=== PATIENT | male | born 1960 | race Hispanic/Latino ===

== ENCOUNTER 2019-03-03 18:20 | Inpatient (IN) | payer SELFPAY ==
[2019-03-03] MEDS ORDERED: FAMOTIDINE 20 MG/2 ML VIAL IV ONE (19:48)
[2019-03-03] MEDS ORDERED: KETOROLAC 30 MG/ML INJ ONE (19:48)
[2019-03-03] MEDS ORDERED: ONDANSETRON 4 MG/2 ML VIAL ONE (19:48)
[2019-03-03] MEDS ORDERED: FENTANYL CITR 100 MCG/2 ML ONE (19:48)
[2019-03-03] MEDS ORDERED: NA CHLORIDE 0.9% 1,000 ML ONE ×2 (19:49→21:31)
[2019-03-03 20:05] LABS: Absolute Lymphocytes (CBC) 0.9 K/uL (0.7-4.9); Basophils % 0.1 % (0-1.3); Hematocrit 47.3 % (39.6-49.0); Lymphocytes % 6.8 % (15.3-44.8)
[2019-03-03 20:10] LABS: Protime INR 0.95
[2019-03-03 20:19] LABS: ALT/SGPT 200 U/L (12-78); AST/SGOT 224 U/L (15-37); Alkaline Phosphatase 208 U/L (45-117); BUN Blood Urea Nitrogen 9 mg/dL (7-18); Bicarbonate 28 mmol/L (21-32); Bilirubin Direct 1.1 mg/dL (0-0.2); Bilirubin Total 1.6 mg/dL (0.2-1.0); Glucose Level 128 mg/dL (74-106); Potassium 3.8 mmol/L (3.5-5.1); Protein, Total 7.6 g/dL (6.4-8.2); Sodium Level 139 mmol/L (136-145); Troponin (Emerg Dept Use Only) < 0.02 ng/mL (0.0-0.045)
[2019-03-03 20:20] LABS: Lipase > 30000 U/L (73-393)
--- NOTE | 2019-03-03 20:44 | RAD REPORT ---
EXAM DESCRIPTION: CTAbdomen Pelvis W Contrast - 03/03/2019 8:32 pm CLINICAL HISTORY: Abdominal pain. ABD PAIN COMPARISON: No comparisons TECHNIQUE: Biphasic CT imaging of the abdomen and pelvis was performed with 100 ml non-ionic IV cont rast. All CT scans are performed using dose optimization technique as appropriate and may include automated exposure control or mA/KV adjustment according to patient size. FINDINGS: The lung bases are clear.Small hiatal hernia. The liver demonstrates several small hypodensities too small to fully characterize by CT. No aggressi ve liver lesion or intrahepatic biliary dilatation. Mild edematous appearance to the pancreas is seen . The spleen, adrenal glands and kidneys are within normal limits. No bowel obstruction, free air, free fluid or abscess. Sigmoid diverticulosis coli is present without diverticulitis. The appendix is normal. No evidence of significant lymphadenopathy. No suspicious bony findings. Old left inferior posterior rib fractures seen. IMPRESSION: Mild uncomplicated acute pancreatitis is suspected. Suggest correlation with amylase/ li pase levels.
[2019-03-03] MEDS ORDERED: HYDROMORPHONE HCL 2 MG/ML inj ONE (21:31)
--- NOTE | 2019-03-03 21:47 | EDPHYS ---
Physician Documentation [facility] Name: Issa Harden Age: 59 yrs Sex: Male : 1960 Arrival Date: 03/03/2019 Time: 18:22 Bed 24 Private MD: ED Physician David Cueto HPI: 03/03 19:23 This 59 yrs old Male presents to ER via Ambulatory with complaints of va Abdominal Pain. 19:23 The patient presents with abdominal pain in the epigastric area, in the right upper wa quadrant. Onset: The symptoms/episode began/occurred 3 hour(s) ago. The symptoms radiate to Associated signs and symptoms: Pertinent negatives: nausea and vomiting, chest pain, diarrhea, fever, palpitations, shortness of breath. The symptoms are described as constant, sharp. Modifying factors: The symptoms are alleviated by nothing, the symptoms are aggravated by nothing. Severity of pain: At its worst the pain was moderate in the emergency department the pain is unchanged. The patient has not experienced similar symptoms in the past. The patient has not recently seen a physician. Historical: - Allergies: 19:06 Bees; aj1 - Home Meds: 19:06 Norvasc Oral [Active]; Lipitor Oral [Active]; aj1 - PMHx: 19:06 Hypertension; Hyperlipidemia; aj1 - PSHx: 19:06 Tonsillectomy; aj1 - Immunization history:: Flu vaccine is not up to date. - Social history:: Smoking status: Patient uses tobacco products, smokes one pack cigarettes per day. - Ebola Screening: : Patient denies travel to an Ebola-affected area in the 21 days before illness onset. - Family history:: not pertinent. - Hospitalizations: : No recent hospitalization is reported. ROS: 19:24 Constitutional: Negative for fever, chills, and weight loss, Eyes: Negative for injury, wa pain, redness, and discharge, ENT: Negative for injury, pain, and discharge, Neck: Negative for injury, pain, and swelling, Cardiovascular: Negative for chest pain, palpitations, and edema, Respiratory: Negative for shortness of breath, cough, wheezing, and pleuritic chest pain, Back: Negative for injury and pain, : Negative for injury, bleeding, discharge, and swelling, MS/Extremity: Negative for injury and deformity, Skin: Negative for injury, rash, and discoloration, Neuro: Negative for headache, weakness, numbness, tingling, and seizure, Psych: Negative for depression, anxiety, suicide ideation, homicidal ideation, and hallucinations. 19:24 Abdomen/GI: Positive for abdominal pain, Negative for nausea and vomiting, diarrhea. 19:24 All other systems are negative. Exam: 19:25 Constitutional: This is a well developed, well nourished patient who is awake, alert, wa and in no acute distress. Head/Face: Normocephalic, atraumatic. Eyes: Pupils equal round and reactive to light, extra-ocular motions intact. Lids and lashes normal. Conjunctiva and sclera are non-icteric and not injected. Cornea within normal limits. Periorbital areas with no swelling, redness, or edema. ENT: Nares patent. No nasal discharge, no septal abnormalities noted. Tympanic membranes are normal and external auditory canals are clear. Oropharynx with no redness, swelling, or masses, exudates, or evidence of obstruction, uvula midline. Mucous membranes moist. Neck: Trachea midline, no thyromegaly or masses palpated, and no cervical lymphadenopathy. Supple, full range of motion without nuchal rigidity, or vertebral point tenderness. No Meningismus. Chest/axilla: Normal chest wall appearance and motion. Nontender with no deformity. No lesions are appreciated. Cardiovascular: Regular rate and rhythm with a normal S1 and S2. No gallops, murmurs, or rubs. Normal PMI, no JVD. No pulse deficits. Respiratory: Lungs have equal breath sounds bilaterally, clear to auscultation and percussion. No rales, rhonchi or wheezes noted. No increased work of breathing, no retractions or nasal flaring. Back: No spinal tenderness. No costovertebral tenderness. Full range of motion. Skin: Warm, dry with normal turgor. Normal color with no rashes, no lesions, and no evidence of cellulitis. MS/ Extremity: Pulses equal, no cyanosis. Neurovascular intact. Full, normal range of motion. Neuro: Awake and alert, GCS 15, oriented to person, place, time, and situation. Cranial nerves II-XII grossly intact. Motor strength 5/5 in all extremities. Sensory grossly intact. Cerebellar exam normal. Normal gait. Psych: Awake, alert, with orientation to person, place and time. Behavior, mood, and affect are within normal limits. 19:25 Cardiovascular: Rate: normal, Rhythm: regular, Pulses: no pulse deficits are appreciated, Heart sounds: murmur, loud. pansystolic. 19:25 Abdomen/GI: Inspection: abdomen appears normal, Bowel sounds: normal, in all quadrants, Palpation: moderate abdominal tenderness, in the epigastric area and right upper quadrant. Vital Signs: 19:06 BP 185 / 89; Pulse 78; Resp 18; Temp 98.9; Pulse Ox 97% on R/A; Weight 93.44 kg (R); aj1 Height 5 ft. 9 in. (175.26 cm) (R); Pain 10/10; 20:00 BP 158 / 79; Pulse 75; Resp 18; Pulse Ox 96% on R/A; Pain 6/10; aa1 19:06 Body Mass Index 30.42 (93.44 kg, 175.26 cm) aj1 MDM: 19:08 Patient medically screened. va 19:38 Differential diagnosis: AAA, bowel obstruction, cholecystitis, gastroesophageal reflux wa disease, Mesenteric ischemia or infarction, myocardia ischemia or infarction, pancreatitis. 21:36 Data reviewed: vital signs, nurses notes, lab test result(s), EKG, radiologic studies. va Test interpretation: by ED physician or midlevel provider: EKG: time: 19:57. HR 77. nml sinus. rightward axis. otherwise nml. Labs noted for elevated 13.2. elevated lipase >30,000. elevated glucose 128. elevated liver enzymes AST 224. ALT 200. Alk phos. 208. Total Bili 1.6. . Response to treatment: the patient's symptoms have mildly improved after treatment. Physician consultation: Caleb Banks MD. ED course: noted acute pancreatitis. NPO. will admit for further eval. suspect ETOH related. will check US to eval gallbladder however. will check LDH. 21:42 ED course: counseled against ETOH abuse. va 21:52 Test interpretation: by ED physician or midlevel provider: CT abd/pelvis: noted for va acute pancreatitis. US RUQ: no galstones. 03/03 19:19 Order name: Basic Metabolic Panel va 03/03 19:19 Order name: CBC with Diff; Complete Time: 20:15 va 03/03 19:19 Order name: LFT's va 03/03 19:19 Order name: PT-INR; Complete Time: 20:15 va 03/03 19:19 Order name: Troponin (emerg Dept Use Only); Complete Time: 21:14 va 03/03 19:19 Order name: Creatinine for Radiology; Complete Time: 20:15 va 03/03 19:19 Order name: Lipase; Complete Time: 21:13 va 03/03 19:21 Order name: Basic Metabolic Panel; Complete Time: 21:14 EDMO 03/03 19:21 Order name: Liver (Hepatic) Function; Complete Time: 21:13 EDMS 03/03 21:30 Order name: Urine Microscopic Only va 03/03 22:25 Order name: LDH va 03/03 22:58 Order name: CBC with Automated Diff EDMO 03/03 22:58 Order name: CBC with Automated Diff EDMO 03/03 22:58 Order name: Comprehensive Metabolic Panel [facility] 03/03 19:20 Order name: CT Abd/Pelvis - IV Contrast Only; Complete Time: 21:14 va 03/03 21:24 Order name: US Abdomen Limited va 03/03 22:58 Order name: Comprehensive Metabolic Panel EDMO 03/03 22:58 Order name: Lipid Profile EDMO 03/03 22:58 Order name: Lipid Profile EDMO 03/03 22:58 Order name: Protime (+INR) EDMO 03/03 22:58 Order name: Protime (+INR) EDMO 03/03 22:58 Order name: PTT, Activated Partial Thromb EDMO 03/03 22:58 Order name: PTT, Activated Partial Thromb EDMO 03/03 23:04 Order name: Urine Dipstick--Ancillary (enter results) ar5 03/03 23:05 Order name: Comprehensive Metabolic Panel EDMO 03/03 23:05 Order name: Lipase EDMO 03/03 23:05 Order name: Alcohol Serum/Plasma EDMS 03/03 23:12 Order name: Lipase EDMO 03/03 19:19 Order name: EKG; Complete Time: 19:21 va 03/03 19:19 Order name: Cardiac monitoring; Complete Time: 20:13 va 03/03 19:19 Order name: EKG - Nurse/Tech; Complete Time: 20:13 va 03/03 19:19 Order name: IV Saline Lock; Complete Time: 19:52 va 03/03 19:19 Order name: Labs collected and sent; Complete Time: 19:53 va 03/03 19:19 Order name: O2 Per Protocol; Complete Time: 19:52 va 03/03 19:19 Order name: O2 Sat Monitoring; Complete Time: 19:53 va 03/03 21:30 Order name: Urine Dipstick-Ancillary (obtain specimen); Complete Time: 23:25 va 03/03 22:57 Order name: CONS Pharmacy Consult EDMO 03/03 22:57 Order name: NPO EDMS Administered Medications: 19:47 Drug: Zofran 4 mg Route: IVP; Site: left antecubital; aa1 19:47 Drug: NS 0.9% 1000 ml Route: IV; Rate: 1 bolus; Site: left antecubital; aa1 20:30 Follow up: IV Status: Completed infusion; IV Intake: 1000ml tr5 19:49 Drug: Pepcid 20 mg Route: IVP; Site: left antecubital; aa1 19:50 Drug: TORadol 30 mg Route: IVP; Site: left antecubital; aa1 19:51 Drug: fentaNYL (PF) 50 mcg Route: IVP; Site: left antecubital; aa1 22:01 Drug: Dilaudid 1 mg {Note: RASS:0.} Route: IVP; Site: right antecubital; tr5 23:25 Follow up: Response: Pain is decreased; RASS: Alert and Calm (0) tr5 22:02 Drug: NS 0.9% 1000 ml Route: IV; Rate: 1 bolus; Site: right antecubital; tr5 23:26 Follow up: IV Status: Completed infusion; IV Intake: 1000ml tr5 Disposition: 03/03/19 21:45 Hospitalization ordered by Caleb Banks for Inpatient Admission. Preliminary diagnosis are Acute abdominal pain, acute pancreatitis, elevated transaminases. - Bed requested for Telemetry/MedSurg (Inpatient). - Status is Inpatient Admission. tr5 - Condition is Stable. - Problem is new. - Symptoms have improved. UTI on Admission? No Signatures: Dispatcher [employer] EDMS Urmila Hernandez RN RN aj1 Trista Mcgregor RN RN Rae Spaulding RN RN aa1 Nory, David, MD MD wa Luis Miguel, Yan, RN RN tr5 Corrections: (The following items were deleted from the chart) 23:02 21:45 Hospitalization Ordered by Caleb Banks MD for Inpatient Admission. Preliminary mw diagnosis is Acute abdominal pain; acute pancreatitis; elevated transaminases. Bed requested for Telemetry/MedSurg (Inpatient). Status is Inpatient Admission. Condition is Stable. Problem is new. Symptoms have improved. UTI on Admission? No. va 23:50 23:02 03/03/2019 21:45 Hospitalization Ordered by Caleb Banks MD for Inpatient tr5 Admission. Preliminary diagnosis is Acute abdominal pain; acute pancreatitis; elevated transaminases. Bed requested for Telemetry/MedSurg (Inpatient). Status is Inpatient Admission. Condition is Stable. Problem is new. Symptoms have improved. UTI on Admission? No. mw
--- NOTE | 2019-03-03 21:47 | ER ---
Nurse's Notes [facility] Name: Issa Harden Age: 59 yrs Sex: Male : 1960 Arrival Date: 03/03/2019 Time: 18:22 Bed 24 Private MD: Diagnosis: Acute abdominal pain;acute pancreatitis;elevated transaminases Presentation: 03/03 19:03 Presenting complaint: Patient states: Abdominal pain that radiates to the back since aj1 1700 today that covers his entire abdomen. Denies N/V/D. Denies fever. Transition of care: patient was not received from another setting of care. Onset of symptoms was March 03, 2019. Risk Assessment: Do you want to hurt yourself or someone else? Patient reports no desire to harm self or others. Initial Sepsis Screen: Does the patient meet any 2 criteria? No. Patient's initial sepsis screen is negative. Does the patient have a suspected source of infection? Yes: Acute abdominal pain. Care prior to arrival: None. 19:03 Method Of Arrival: Ambulatory aj 19:03 Acuity: LINDA 3 aj1 Triage Assessment: 19:06 General: Appears in no apparent distress. uncomfortable, Behavior is calm, cooperative, aj1 appropriate for age. Pain: Complains of pain in abdomen diffusely Pain radiates to back Pain currently is 10 out of 10 on a pain scale. Neuro: Level of Consciousness is awake, alert, obeys commands. Cardiovascular: Patient's skin is warm and dry. Respiratory: Airway is patent Respiratory effort is even, unlabored, Respiratory pattern is regular, symmetrical. GI: Reports lower abdominal pain, upper abdominal pain, Patient currently denies diarrhea, nausea, vomiting. Historical: - Allergies: 19:06 Bees; aj1 - Home Meds: 19:06 Norvasc Oral [Active]; Lipitor Oral [Active]; aj1 - PMHx: 19:06 Hypertension; Hyperlipidemia; aj1 - PSHx: 19:06 Tonsillectomy; aj1 - Immunization history:: Flu vaccine is not up to date. - Social history:: Smoking status: Patient uses tobacco products, smokes one pack cigarettes per day. - Ebola Screening: : Patient denies travel to an Ebola-affected area in the 21 days before illness onset. - Family history:: not pertinent. - Hospitalizations: : No recent hospitalization is reported. Screenin:49 Abuse screen: Denies threats or abuse. Nutritional screening: No deficits noted. tr5 Tuberculosis screening: No symptoms or risk factors identified. Fall Risk None identified. Assessment: 19:49 General: Appears uncomfortable, Behavior is calm, cooperative, appropriate for age. tr5 Pain: Complains of pain in right upper quadrant and left upper quadrant. Pain: Pain radiates to back Pain currently is 6 out of 10 on a pain scale. Quality of pain is described as crampy, Pain began 2 hours ago. Neuro: Level of Consciousness is awake, alert, obeys commands, Oriented to person, place, time, Junior Network Administrator are equal bilaterally Moves all extremities. Cardiovascular: Heart tones present Capillary refill < 3 seconds. Respiratory: Airway is patent Respiratory effort is even, unlabored, Respiratory pattern is regular, symmetrical. GI: Bowel sounds present X 4 quads. Abd is soft and non tender X 4 quads. GI: Reports upper abdominal pain. : No signs and/or symptoms were reported regarding the genitourinary system. EENT: No signs and/or symptoms were reported regarding the EENT system. Derm: No signs and/or symptoms reported regarding the dermatologic system. Musculoskeletal: No signs and/or symptoms reported regarding the musculoskeletal system. 20:52 Reassessment: Patient appears in no apparent distress at this time. Patient and/or tr5 family updated on plan of care and expected duration. Pain level reassessed. Patient is alert, oriented x 3, equal unlabored respirations, skin warm/dry/pink. 21:29 Reassessment: Patient appears in no apparent distress at this time. Patient and/or aa1 family updated on plan of care and expected duration. Pain level reassessed. Patient is alert, oriented x 3, equal unlabored respirations, skin warm/dry/pink. Pt taken to CT at this time. Vital Signs: 19:06 BP 185 / 89; Pulse 78; Resp 18; Temp 98.9; Pulse Ox 97% on R/A; Weight 93.44 kg (R); aj1 Height 5 ft. 9 in. (175.26 cm) (R); Pain 10/10; 20:00 BP 158 / 79; Pulse 75; Resp 18; Pulse Ox 96% on R/A; Pain 6/10; aa1 19:06 Body Mass Index 30.42 (93.44 kg, 175.26 cm) aj1 ED Course: 18:22 Patient arrived in ED. cf2 19:06 Triage completed. aj1 19:06 Arm band placed on Patient placed in waiting room, Patient notified of wait time. aj1 19:08 David Cueto MD is Attending Physician. wa 19:22 Radiology exam delayed due to lab results not completed at this time. (BUN/Creatinine) vm2 IV insertion attempt and/or patient not having appropriate IV at this time. 19:45 Bed in low position. Call light in reach. Side rails up X 1. tr5 19:45 Initial lab(s) drawn, by me, sent to lab. Inserted saline lock: 22 gauge in left tr5 antecubital area, using aseptic technique. 19:47 Yan Bolanos, RN is Primary Nurse. tr5 20:13 EKG done, by ED staff, reviewed by David Cueto MD. jp3 20:32 CT Abd/Pelvis - IV Contrast Only In Process Unspecified. EDMS 21:43 Caleb Banks MD is Hospitalizing Provider. wa 21:46 US Abdomen Limited In Process Unspecified. EDMS 23:28 No provider procedures requiring assistance completed. Patient admitted, IV remains in tr5 place. Administered Medications: 19:47 Drug: Zofran 4 mg Route: IVP; Site: left antecubital; aa1 19:47 Drug: NS 0.9% 1000 ml Route: IV; Rate: 1 bolus; Site: left antecubital; aa1 20:30 Follow up: IV Status: Completed infusion; IV Intake: 1000ml tr5 19:49 Drug: Pepcid 20 mg Route: IVP; Site: left antecubital; aa1 19:50 Drug: TORadol 30 mg Route: IVP; Site: left antecubital; aa1 19:51 Drug: fentaNYL (PF) 50 mcg Route: IVP; Site: left antecubital; aa1 22:01 Drug: Dilaudid 1 mg {Note: RASS:0.} Route: IVP; Site: right antecubital; tr5 23:25 Follow up: Response: Pain is decreased; RASS: Alert and Calm (0) tr5 22:02 Drug: NS 0.9% 1000 ml Route: IV; Rate: 1 bolus; Site: right antecubital; tr5 23:26 Follow up: IV Status: Completed infusion; IV Intake: 1000ml tr5 Intake: 20:30 IV: 1000ml; Total: 1000ml. tr5 23:26 IV: 1000ml; Total: 2000ml. tr5 Outcome: 21:45 Decision to Hospitalize by Provider. nj 23:28 Admitted to 5 23:28 Condition: stable 23:28 Instructed on the need for admit. 23:50 Patient left the ED. tr5 Signatures: Dispatcher [employer] Urmila Sims, ASHLEY RN aj1 Rae Spaulding RN RN aa1 Sarai Esquivel 2 David Cueto MD MD wa Pisarski, Jacob jp3 Rodriguez, Tommie, RN RN tr5 Miracle Valdes 2
[2019-03-03] MEDS ORDERED: ONDANSETRON 4 MG/2 ML VIAL IV PRN (22:52)
[2019-03-03] MEDS ORDERED: ACETAMINOPHEN 500 MG TAB PO PRN (22:52)
[2019-03-03 23:09] LABS: Urine Blood TRACE (NEG); Urine Glucose NEGATIVE (NEG); Urine Protein NEGATIVE (NEG); Urine Specific Gravity <1.005 (1.005-1.030)
[2019-03-03 23:44] LABS: Urine Bacteria <20 /HPF (NONE SEEN); Urine Culture Reflex Order NOT NEEDED; Urine RBC NONE SEEN /HPF (NONE SEEN)
[2019-03-03] MEDS: NA CHLORIDE 0.9% 1,000 ML IV SCH (23:52)
[2019-03-04 00:35] VITALS: BMI 30.9
[2019-03-04] MEDS: HYDROMORPHONE HCL 1 MG/ML INJ IV PRN ×4 (01:14→17:29)
[2019-03-04 02:32] LABS: Albumin 3.4 g/dL (3.4-5.0); Bilirubin Total 2.1 mg/dL (0.2-1.0); Potassium 4.2 mmol/L (3.5-5.1); Protein, Total 6.6 g/dL (6.4-8.2)
[2019-03-04] MEDS: METOPROLOL TAR 25 MG TAB PO SCH ×2 (05:30→17:29)
[2019-03-04 05:48] LABS: Absolute Lymphocytes (CBC) 1.6 K/uL (0.7-4.9); Basophils % 0.1 % (0-1.3); Hematocrit 41.7 % (39.6-49.0); Lymphocytes % 17.5 % (15.3-44.8); MPV 10.1 fL (7.6-11.3); RBC Red Blood Cell Count 4.16 M/uL (4.33-5.43)
[2019-03-04 05:49] LABS: Protime INR 0.93
[2019-03-04 06:09] LABS: Albumin 3.4 g/dL (3.4-5.0); Potassium 3.8 mmol/L (3.5-5.1); Protein, Total 6.6 g/dL (6.4-8.2)
--- NOTE | 2019-03-04 07:35 | P.HP ---
Certification for Inpatient Patient admitted to: Inpatient With expected LOS: >2 Midnights Patient will require the following post-hospital care: None Practitioner: I am a practitioner with admitting privileges, knowledge of patient current condition, hospital course, and medical plan of care. Services: Services provided to patient in accordance with Admission requirements found in Title 42 Section 412.3 of the Code of Federal Regulations Patient History Date of Service: 03/03/19 Reason for admission: Alcoholic pancreatitis History of Present Illness: Patient is a 59-year-old gentleman who comes to the hospital with severe epigastric tenderness. He has been drinking quite heavily throughout the last few weeks. He relates this to watching the [employer] play in the playoffs along with [employer] series. He came into the hospital for evaluation and was found to have a lipase level greater than 30,000. He had a CT scan as well as an abdominal ultrasound performed to rule out any obstruction. The CT scan was negative except for some mild to moderate pancreatitis changes. His ultrasound did not reveal any gallstones or any gallbladder wall distension or dilatation of the common bile duct. Patient will be admitted to the hospital for further evaluation. Allergies No Known Allergies Allergy (Verified 03/03/19 23:51) Home Medications: Amlodipine Besylate [Norvasc] 2.5 mg PO DAILY 03/04/19 Atorvastatin Calcium [Lipitor] 80 mg PO DAILY 03/04/19 - Past Medical/Surgical History Has patient received pneumonia vaccine in the past: No Diabetic: No -: hypertension -: hyperlipidemia -: Alcohol use -: tonsillectomy -: right knee and right ankle surgery - Family History Father Family History: Reviewed- Non-Contributory - Social History Smoking Status: Heavy Tobacco smoker (>10 cigarettes/day) Alcohol use: Yes CD- Drugs: No Caffeine use: No Place of Residence: Home Review of Systems 10-point ROS is otherwise unremarkable Physical Examination - Vital Signs Temperature: 98.1 F Blood Pressure: 139/67 Pulse: 67 Respirations: 16 Pulse Ox (%): 97 - Physical Exam General: Alert, In no apparent distress, Oriented x3 HEENT: Atraumatic, PERRLA, Mucous membr. moist/pink, EOMI, Sclerae nonicteric Neck: Supple, 2+ carotid pulse no bruit, No LAD, Without JVD or thyroid abnormality Respiratory: Clear to auscultation bilaterally, Normal air movement Cardiovascular: Regular rate/rhythm, Normal S1 S2, No murmurs Gastrointestinal: Normal bowel sounds, Soft and benign, Non-distended, No rebound, No guarding, Tenderness Musculoskeletal: No clubbing, No swelling, No tenderness Integumentary: No rashes Neurological: Normal gait, Normal speech, Normal strength at 5/5 x4 extr, Normal tone, Sensation intact, Cranial nerves 3-12 intact, Normal affect Lymphatics: No axilla or inguinal lymphadenopathy - Studies Laboratory Data (last 24 hrs) 03/03/19 19:40: Creatinine 1.02 03/03/19 19:40: PT 11.2, INR 0.95 03/03/19 19:40: WBC 13.2 H, Hgb 16.1, Hct 47.3, Plt Count 190 03/03/19 19:40: Sodium 139, Potassium 3.8, BUN 9, Creatinine 1.03, Glucose 128 H , Total Bilirubin 1.6 H, AST 224 H, ALT 200 H, Alkaline Phosphatase 208 H, Lipase > 63074 H Assessment & Plan - Problems (Diagnosis) (1) Acute alcoholic pancreatitis Current Visit: Yes Status: Acute - Plan 1. Continue with aggressive IV hydration 2. Check the lipid profile to rule out hypertriglyceridemia; patient states that he has been drinking heavily so most likely related to his alcohol use. Has no evidence of gallstones or bile duct obstruction on any of his imaging studies including ultrasound of the gallbladder and CT of the abdomen. 3. Continue with pain control 4. NPO 5. GI consultation as an outpatient 6. We will monitor CBC, BMP, LFTs and lipase along with electrolytes. 7. We also need to monitor for delirium tremens 8. GI and DVT prophylaxis Discharge Plan: Home Plan to discharge in: Greater than 2 days - Advance Directives Does patient have a Living Will: No Does patient have a Durable POA for Healthcare: No - Code Status/Comfort Care Code Status Assessed: Yes Code Status: Full Code Critical Care: No Time Spent Managing PTS Care (In Minutes): 45
--- NOTE | 2019-03-04 08:28 | RAD REPORT ---
EXAM DESCRIPTION: US - Abdomen Exam Limited - 03/03/2019 9:44 pm CLINICAL HISTORY: abd pain. eval gallbladder Preliminary findings provided at the time of the study. COMPARISON: Abdomen Pelvis W Contrast dated 03/03/2019 FINDINGS: No gallstones, sludge or other abnormalities within the gallbladder lumen. There is no wal l thickening or pericholecystic fluid. No common duct stone or biliary tree dilatation identified. IMPRESSION: Normal gallbladder and biliary tree ultrasound.
[2019-03-04] MEDS: NA CHLORIDE 0.9% 1,000 ML IV SCH ×3 (09:28→23:51)
[2019-03-04] MEDS ORDERED: INFLUENZA VACCINE (for 3y+) 0.5 ML DOSE IMVAC ONE (12:00)
--- NOTE | 2019-03-04 14:08 | P.PN ---
Subjective Date of Service: 03/04/19 Chief Complaint: Alcoholic pancreatitis Subjective: Improving (Patient is improving pain has also improved still less some nausea) Review of Systems Unremarkable Physical Examination - Vital Signs Temperature: 97.8 F Blood Pressure: 149/71 Pulse: 60 Respirations: 16 Pulse Ox (%): 97 - Physical Exam General: Alert, In no apparent distress, Oriented x3 Respiratory: Clear to auscultation bilaterally Cardiovascular: No edema, Regular rate/rhythm Gastrointestinal: Normal bowel sounds, Tenderness (Mild generalized tenderness) Musculoskeletal: No clubbing - Studies Laboratory Data (last 24 hrs) 03/03/19 19:40: Creatinine 1.02 03/03/19 19:40: PT 11.2, INR 0.95 03/03/19 19:40: WBC 13.2 H, Hgb 16.1, Hct 47.3, Plt Count 190 03/03/19 19:40: Sodium 139, Potassium 3.8, BUN 9, Creatinine 1.03, Glucose 128 H , Total Bilirubin 1.6 H, AST 224 H, ALT 200 H, Alkaline Phosphatase 208 H, Lipase > 52760 H Assessment & Plan - Problems (Diagnosis) (1) Acute alcoholic pancreatitis Current Visit: Yes Status: Acute Plan: Patient is 59 years of age admitted with acute alcoholic pancreatitis his pain seems to be improving was start him on some liquids this evening CT scan and lipase consistent with pancreatitis he also has abnormal liver function test will schedule in for an MRCP on Wednesday continue with pain meds and IV fluids Qualifiers: Acute pancreatitis complication: no infection or necrosis Qualified Code(s) : K85.20 - Alcohol induced acute pancreatitis without necrosis or infection
[2019-03-04 22:58] VITALS: O2SAT 96
[2019-03-05 01:56] LABS: Hematocrit 41.7 % (39.6-49.0); MPV 10.4 fL (7.6-11.3); RBC Red Blood Cell Count 4.15 M/uL (4.33-5.43)
[2019-03-05 02:11] LABS: ALT/SGPT 237 U/L (12-78); AST/SGOT 77 U/L (15-37); Albumin 3.3 g/dL (3.4-5.0); Alkaline Phosphatase 179 U/L (45-117); BUN Blood Urea Nitrogen 6 mg/dL (7-18); Bicarbonate 27 mmol/L (21-32); Bilirubin Total 0.9 mg/dL (0.2-1.0); Glucose Level 77 mg/dL (74-106); Lipase 667 U/L (73-393); Potassium 3.8 mmol/L (3.5-5.1); Protein, Total 6.4 g/dL (6.4-8.2); Sodium Level 143 mmol/L (136-145)
[2019-03-05] MEDS: METOPROLOL TAR 25 MG TAB PO SCH ×2 (05:31→17:15)
[2019-03-05] MEDS: NA CHLORIDE 0.9% 1,000 ML IV SCH ×2 (07:00→10:07)
[2019-03-05] MEDS ORDERED: AMLODIPINE 2.5 MG TAB PO SCH (09:00)
--- NOTE | 2019-03-05 10:34 | P.PN ---
Subjective Date of Service: 03/05/19 Chief Complaint: Alcoholic pancreatitis Subjective: Improving (Patient is doing much better denies any pain lipase level is decreased significantly) Review of Systems Unremarkable Physical Examination - Vital Signs Temperature: 98.3 F Blood Pressure: 181/87 Pulse: 65 Respirations: 18 Pulse Ox (%): 97 - Physical Exam General: Alert, In no apparent distress, Oriented x3 Respiratory: Clear to auscultation bilaterally Cardiovascular: No edema, Regular rate/rhythm, Normal S1 S2 Gastrointestinal: Normal bowel sounds, Soft and benign Assessment & Plan - Problems (Diagnosis) (1) Acute alcoholic pancreatitis Current Visit: Yes Status: Acute Plan: Patient admitted with alcoholic pancreatitis MRCP is pending lipase is improved and for discharge tomorrow no pain advanced diet resume amlodipine patient has a trip planned for [facility] on Wednesday Dc IV fluids LFTs have also been improving Qualifiers: Acute pancreatitis complication: no infection or necrosis Qualified Code(s) : K85.20 - Alcohol induced acute pancreatitis without necrosis or infection
[2019-03-05 11:32] LABS: Hematocrit 42.1 % (39.6-49.0); MPV 9.7 fL (7.6-11.3); RBC Red Blood Cell Count 4.22 M/uL (4.33-5.43)
--- NOTE | 2019-03-05 12:48 | EKG ---
Test Date: 2019-03-03 Test Time: 19:57:39 Pollution Control Technician: ARY MEASUREMENT RESULTS: Intervals: Rate: 77 ND: 178 QRSD: 86 QT: 370 QTc: 418 Farrell: P: 57 ND: 178 QRS: 107 T: 52 INTERPRETIVE STATEMENTS: Normal sinus rhythm Rightward axis Borderline ECG No previous ECG available for comparison Electronically Signed On 03-05-19 12:45:27 CUTTER MACHINE TENDER by Ziggy Lamb
--- NOTE | 2019-03-05 20:49 | P.PN ---
Subjective Date of Service: 03/05/19 Chief Complaint: Alcoholic pancreatitis Physical Examination - Vital Signs Temperature: 98.8 F Blood Pressure: 170/84 Pulse: 66 Respirations: 18 Pulse Ox (%): 96 Assessment & Plan Physician Review Additional Text: Impression: Epigastric Abdominal pain secondary to Moderate Alcoholic Pancreatitis Elevated liver function secondary to above Alcohol abuse HTN Hyperlipidemia
[2019-03-06] MEDS: METOPROLOL TAR 25 MG TAB PO SCH (05:14)
[2019-03-06 06:25] LABS: Albumin 3.6 g/dL (3.4-5.0); Bilirubin Total 0.7 mg/dL (0.2-1.0); Potassium 4.5 mmol/L (3.5-5.1); Protein, Total 7.2 g/dL (6.4-8.2)
--- NOTE | 2019-03-06 08:19 | RAD REPORT ---
EXAM DESCRIPTION: MRI - Cholangiogram - 03/06/2019 7:46 am CLINICAL HISTORY: pancreatitis COMPARISON: Abdomen Exam Limited dated 03/03/2019; Abdomen Pelvis W Contrast dated 03/03/2019 FINDINGS: Three-dimensional MRCP was performed using maximum intensity projection reconstruction on the same work station. No intrahepatic biliary tree dilatation is seen. The common bile duct is normal caliber without evide nce of retained stone, stricture or mass. The pancreatic duct is not pathologically dilated. The gallbladder is unremarkable. Limited T2 sequences through the abdomen demonstrates no bulky adenopathy, significant free fluid or abscess. Mild edema of the pancreas suspected. IMPRESSION: Negative MR cholangiogram.
[2019-03-06] MEDS ORDERED: AMLODIPINE 2.5 MG TAB PO SCH (09:00)
--- NOTE | 2019-03-06 09:40 | P.DS ---
Admission Date: 03/03/19 Discharge Date: 03/06/19 Primary Care Provider: none Disposition: ROUTINE DISCHARGE Discharge Condition: GOOD Reason for Admission: Alcoholic pancreatitis Consultations: none Procedures: Abdominal US: FINDINGS: No gallstones, sludge or other abnormalities within the gallbladder lumen. There is no wall thickening or pericholecystic fluid. No common duct stone or biliary tree dilatation identified. IMPRESSION: Normal gallbladder and biliary tree ultrasound. CT scan: FINDINGS: The lung bases are clear.Small hiatal hernia. The liver demonstrates several small hypodensities too small to fully characterize by CT. No aggressive liver lesion or intrahepatic biliary dilatation. Mild edematous appearance to the pancreas is seen. The spleen, adrenal glands and kidneys are within normal limits. No bowel obstruction, free air, free fluid or abscess. Sigmoid diverticulosis coli is present without diverticulitis. The appendix is normal. No evidence of significant lymphadenopathy. No suspicious bony findings. Old left inferior posterior rib fractures seen. IMPRESSION: Mild uncomplicated acute pancreatitis is suspected. Suggest correlation with amylase/ lipase levels. MRCP: FINDINGS: Three-dimensional MRCP was performed using maximum intensity projection reconstruction on the same work station. No intrahepatic biliary tree dilatation is seen. The common bile duct is normal caliber without evidence of retained stone, stricture or mass. The pancreatic duct is not pathologically dilated. The gallbladder is unremarkable. Limited T2 sequences through the abdomen demonstrates no bulky adenopathy, significant free fluid or abscess. Mild edema of the pancreas suspected. IMPRESSION: Negative MR cholangiogram. Medical Problem list: Epigastric Abdominal pain secondary to mild Alcoholic Pancreatitis Elevated liver function secondary to above Alcohol abuse GERD with hiatal hernia HTN Hyperlipidemia Brief History of Present Illness: 59-year-old male presented to the emergency room with epigastric pain. CT scan revealed pancreatitis. Lipase is significantly elevated. Patient admitted for further evaluation. Hospital Course: Patient presented with epigastric pain secondary to alcoholic pancreatitis. Lipase significantly elevated. Abdominal ultrasound showed no biliary dilation or stones. Triglycerides were within normal range. Patient with alcohol abuse. Patient had previously been drinking heavily. Patient has done well during the course of his stay. At discharge patient able to eat appropriately. MRCP unremarkable. At discharge patient will continue with a GI soft diet. Recommend cessation of alcohol entirely. Patient plans to commit to this. Recommend follow up with GI in 2-4 weeks to follow up this hospitalization and to further address. Patient likely with GERD. Hiatal hernia noted on CT scan. At discharge patient may continue with Protonix 40 mg daily. Patient may benefit with GI evaluation as an outpatient to further address pre Patient with hypertension. Patient required additional medication to his current regimen. At discharge he will continue with his current medication- Norvasc 2.5 mg daily and metoprolol 25 mg twice daily. Recommend to maintain blood pressures less 150/80. Further adjustment can be done by his PCP. Patient with hyperlipidemia. Patient taking medication. Will recommend to hold medication until recheck of liver function can be arranged. Medication can be restarted if liver function within normal range. Vital Signs/Physical Exam: Temp Pulse Resp BP Pulse Ox 98.3 F 69 16 139/82 95 03/06/19 04:00 03/06/19 04:00 03/06/19 04:00 03/06/19 04:00 03/06/19 04:00 General: Alert, In no apparent distress, Oriented x3, Cooperative HEENT: Atraumatic Neck: Supple Respiratory: Clear to auscultation bilaterally, Normal air movement Cardiovascular: Normal pulses, Regular rate/rhythm Gastrointestinal: Normal bowel sounds, Soft and benign, Non-distended, No ascites, No tenderness, No masses, No rebound, No guarding Musculoskeletal: No erythema, No tenderness, No warmth Neurological: Normal speech, Normal strength at 5/5 x4 extr, Normal tone, Normal affect Laboratory Data at Discharge: WBC 9.3 K/uL (4.3-10.9) 03/05/19 11:25 Hgb 14.8 g/dL (13.6-17.9) 03/05/19 11:25 Hct 42.1 % (39.6-49.0) 03/05/19 11:25 Plt Count 173 K/uL (152-406) 03/05/19 11:25 PT 11.0 SECONDS (9.5-12.5) 03/04/19 05:22 INR 0.93 03/04/19 05:22 APTT 35.8 SECONDS (24.3-36.9) 03/04/19 05:22 Sodium 142 mmol/L (136-145) 03/06/19 05:46 Potassium 4.5 mmol/L (3.5-5.1) 03/06/19 05:46 BUN 9 mg/dL (7-18) 03/06/19 05:46 Creatinine 0.99 mg/dL (0.55-1.3) 03/06/19 05:46 Glucose 83 mg/dL (74-106) 03/06/19 05:46 Magnesium 2.2 mg/dL (1.8-2.4) 03/06/19 05:46 Total Bilirubin 0.7 mg/dL (0.2-1.0) 03/06/19 05:46 AST 28 U/L (15-37) 03/06/19 05:46 ALT 172 U/L (12-78) H 03/06/19 05:46 Alkaline Phosphatase 165 U/L (45-117) H 03/06/19 05:46 Triglycerides 60 mg/dL (<150) 03/04/19 05:22 Cholesterol 147 mg/dL (<200) 03/04/19 05:22 HDL Cholesterol 63 mg/dL (40-60) H 03/04/19 05:22 Cholesterol/HDL Ratio 2.33 03/04/19 05:22 Lipase 334 U/L (73-393) 03/06/19 05:46 Home Medications: Amlodipine Besylate [Norvasc] 2.5 mg PO DAILY 03/04/19 Metoprolol Tartrate [Lopressor*] 25 mg PO BID 6AM 6PM #60 tab 03/06/19 Pantoprazole [Protonix Tab] 40 mg PO DAILY #30 tab 03/06/19 New Medications: Metoprolol Tartrate [Lopressor*] 25 mg PO BID 6AM 6PM #60 tab Pantoprazole [Protonix Tab] 40 mg PO DAILY #30 tab Patient Discharge Instructions: 1. Recommend to establish care with a PCP in the area to follow up his hospitalization. 2. Patient presented with epigastric pain secondary to alcoholic pancreatitis. Lipase significantly elevated. Abdominal ultrasound showed no biliary dilation or stones. Triglycerides were within normal range. Patient with alcohol abuse. Patient had previously been drinking heavily. Patient has done well during the course of his stay. At discharge patient able to eat appropriately. MRCP unremarkable. At discharge patient will continue with a GI soft diet. Recommend cessation of alcohol entirely. Patient plans to commit to this. Recommend follow up with GI in 2-4 weeks to follow up this hospitalization and to further address. 3. Patient likely with GERD. Hiatal hernia noted on CT scan. At discharge patient may continue with Protonix 40 mg daily. Patient may benefit with GI evaluation as an outpatient to further address pre. 4. Patient with hypertension. Patient required additional medication to his current regimen. At discharge he will continue with his current medication- Norvasc 2.5 mg daily and metoprolol 25 mg twice daily. Recommend to maintain blood pressures less 150/80. Further adjustment can be done by his PCP. 5. Patient with hyperlipidemia. Patient taking medication. Will recommend to hold medication until recheck of liver function can be arranged. Medication can be restarted if liver function within normal range. Diet: AHA Activity: Ad hailee Time spent managing pt's care (in minutes): 55
[2019-03-06 10:18] VITALS: BP 168/78; TEMP 98.5
== END 2019-03-06 11:19 | disposition home or self-care (01) | DRG 440 ==
LOC: ER 18:20 → 2ND 22:54
PROVIDERS: ADMIT Hospitalist; ATTEND Hospitalist
DX: K85.20 Alcohol induced acute pancreatitis without necrosis or infection (principal); I10 Essential (primary) hypertension; E78.5 Hyperlipidemia, unspecified; F17.210 Nicotine dependence, cigarettes, uncomplicated; F10.10 Alcohol abuse, uncomplicated
CPT/HCPCS: 36415; 74177; 74181; 76705; 80048; 80053; 80061; 80076; 80320; 81003; 81015; 83615; 83690; 83735; 84484; 85025; 85027; 85610; 85730; 93005; 96361; 96374; 96375; 99285; J1170; J2405; J3010; J7030; Q9967

== ENCOUNTER 2020-06-05 07:30 | Emergency (ER) | payer BC, SELFPAY ==
[2020-06-05] MEDS ORDERED: TETRACAINE HCL 0.5% 4ML OPTH ONE (07:57)
[2020-06-05] MEDS ORDERED: FLUORESCEIN SODIUM 1 MG/WRAP ONE (07:57)
--- NOTE | 2020-06-05 08:00 | EDPHYS ---
Physician Documentation [facility] Name: Issa Harden Age: 60 yrs Sex: Male : 1960 Arrival Date: 06/05/2020 Time: 07:32 Bed 18 Private MD: ED Physician Moy Campos HPI: 06/05 08:33 This 60 yrs old Male presents to ER via Ambulatory with complaints of Redness kdr of Eye, Eye Pain. 08:33 The patient is experiencing foreign body sensation, pain, redness, tearing, The patient kdr sustained an abrasion, a scratch, to the left eye, caused by debris. Onset: The symptoms/episode began/occurred yesterday. Duration: the symptoms are continuous. Aggravated by blinking, closing eye, opening eye, Alleviated by nothing. Associated signs and symptoms: Pertinent positives: None. Pertinent negatives: None. Patient does not utilize any form of vision correction. Severity of symptoms: At their worst the symptoms were moderate in the emergency department the symptoms are unchanged. The patient has not experienced similar symptoms in the past. The patient has not recently seen a physician. Historical: - Allergies: 07:45 Bees; bp 07:57 Bees; iw - Home Meds: 07:45 Lipitor Oral [Active]; Norvasc Oral [Active]; bp - PMHx: 07:45 Hyperlipidemia; Hypertension; bp 07:57 Hyperlipidemia; Hypertension; iw - PSHx: 07:57 Tonsillectomy; iw - Immunization history:: Adult Immunizations up to date, Adult Immunizations up to date. - Social history:: Smoking status: Patient denies any tobacco usage or history of. Smoking status: Patient reports the use of cigarette tobacco products, smokes one-half pack cigarettes per day. ROS: 08:33 Constitutional: Negative for fever, chills, and weight loss, ENT: Negative for injury, kdr pain, and discharge, Neck: Negative for injury, pain, and swelling, Cardiovascular: Negative for chest pain, palpitations, and edema. 08:33 Eyes: Positive for foreign body sensation, pain, photophobia, redness. Exam: 08:33 Constitutional: This is a well developed, well nourished patient who is awake, alert, kdr and in no acute distress. 08:33 Eyes: Periorbital structures: appear normal, Pupils: equal, round, and reactive to light and accomodation, Extraocular movements: no acute changes, Conjunctiva: normal, Corneas: foreign body, on the left, at 10 o'clock, a fluorescein strip employed to appreciate the findings, Sclera: no appreciated abnormality, Lids and lashes: appear normal, bilaterally, Examination of the other eye reveals no obvious gross abnormality. Vital Signs: 07:42 BP 143 / 61; Pulse 58; Resp 16; Temp 97.6(O); Pulse Ox 100% ; mh5 07:42 Resp 16; Weight 78.02 kg; Height 5 ft. 9 in. (175.26 cm); Pain 7/10; iw 07:42 Body Mass Index 25.40 (78.02 kg, 175.26 cm) iw MDM: 08:00 Patient medically screened. kdr 08:33 Data reviewed: vital signs, nurses notes. Counseling: I had a detailed discussion with kdr the patient and/or guardian regarding: the historical points, exam findings, and any diagnostic results supporting the discharge/admit diagnosis, the need for outpatient follow up, for definitive care, an opthalmologist. ED course: The patient had good relief of pain with Tetracaine. Was discharged to Dr. Rajput's office in good condition and happy with the care provided and the plan for discharge and follow-up. Administered Medications: No medications were administered Disposition: 06/05/20 08:00 Discharged to Home. Impression: Foreign body in cornea, left eye. - Condition is Stable. - Discharge Instructions: Eye Foreign Body, [id number]. - Medication Reconciliation Form, Thank You Letter form. - Follow up: Papa Rajput MD; When: Upon discharge from the Emergency Department; Reason: Further diagnostic work-up, Recheck today's complaints, Continuance of care, Re-evaluation by your physician. - Problem is new. - Symptoms have improved. - Notes: Go directly to Dr. Rajput's office for further care and removal of the foreign body in your eye. Signatures: Moy Campos MD MD kdr Amita Ambrose, ASHLEY RAMIREZ iw Melchor Barragan RN RN bp Corrections: (The following items were deleted from the chart) 08:08 08:00 06/05/2020 08:00 Discharged to Home. Impression: Foreign body in cornea, left bp eye. Condition is Stable. Forms are Medication Reconciliation Form, Thank You Letter, Antibiotic Education, Prescription Opioid Use. Follow up: Papa Rajput; When: Upon discharge from the Emergency Department; Reason: Further diagnostic work-up, Recheck today's complaints, Continuance of care, Re-evaluation by your physician. Problem is new. Symptoms have improved. kdr
--- NOTE | 2020-06-05 08:00 | ER ---
Nurse's Notes [facility] Name: Issa Harden Age: 60 yrs Sex: Male : 1960 Arrival Date: 06/05/2020 Time: 07:32 Bed 18 Private MD: Diagnosis: Foreign body in cornea, left eye Presentation: 06/05 07:42 Chief complaint: Patient states: got something in his left eye last night, tried to get iw it out with the eye wash but still feels like there's something in it, is painful and red. Coronavirus screen: At this time, the client does not indicate any symptoms associated with coronavirus-19. Ebola Screen: Patient negative for fever greater than or equal to 101.5 degrees Fahrenheit, and additional compatible Ebola Virus Disease symptoms Patient denies exposure to infectious person. Patient denies travel to an Ebola-affected area in the 21 days before illness onset. No symptoms or risks identified at this time. Mechanism of Injury: No Mechanism of Injury. The patient denies any loss of vision. Initial Sepsis Screen: Does the patient meet any 2 criteria? No. Patient's initial sepsis screen is negative. Does the patient have a suspected source of infection? No. Patient's initial sepsis screen is negative. Risk Assessment: Do you want to hurt yourself or someone else? Patient reports no desire to harm self or others. Onset of symptoms was June 04, 2020. 07:42 Method Of Arrival: Ambulatory iw 07:42 Acuity: LINDA 4 iw Triage Assessment: 07:45 General: Appears in no apparent distress. comfortable, Behavior is calm, cooperative, bp appropriate for age. Neuro: No deficits noted. Cardiovascular: No deficits noted. Respiratory: No deficits noted. GI: No signs and/or symptoms were reported involving the gastrointestinal system. : No signs and/or symptoms were reported regarding the genitourinary system. Derm: No deficits noted. Musculoskeletal: No deficits noted. 07:45 Pain: Complains of pain in left eye. bp 07:45 EENT: Reports pain in left eye. bp Historical: - Allergies: 07:45 Bees; bp 07:57 Bees; iw - Home Meds: 07:45 Lipitor Oral [Active]; Norvasc Oral [Active]; bp - PMHx: 07:45 Hyperlipidemia; Hypertension; bp 07:57 Hyperlipidemia; Hypertension; iw - PSHx: 07:57 Tonsillectomy; iw - Immunization history:: Adult Immunizations up to date, Adult Immunizations up to date. - Social history:: Smoking status: Patient denies any tobacco usage or history of. Smoking status: Patient reports the use of cigarette tobacco products, smokes one-half pack cigarettes per day. Screenin:45 Abuse screen: Denies threats or abuse. Denies injuries from another. Nutritional bp screening: No deficits noted. Tuberculosis screening: No symptoms or risk factors identified. Fall Risk None identified. Assessment: 07:45 General: SEE TRIAGE NOTE. EENT: Eyes are tearing on right eye Sclera/Cornea are bp reddened in right eye. 08:07 Reassessment: PT D/C HOME AMBULATORY, DX WITH FB LEFT EYE. bp Vital Signs: 07:42 BP 143 / 61; Pulse 58; Resp 16; Temp 97.6(O); Pulse Ox 100% ; mh5 07:42 Resp 16; Weight 78.02 kg; Height 5 ft. 9 in. (175.26 cm); Pain 7/10; iw 07:42 Body Mass Index 25.40 (78.02 kg, 175.26 cm) iw ED Course: 07:32 Patient arrived in ED. ag5 07:36 Moy Campos MD is Attending Physician. kdr 07:43 Patient has correct armband on for positive identification. Bed in low position. Call mh5 light in reach. Pulse ox on. NIBP on. 07:45 Triage completed. iw 07:47 Melchor Barragan, RN is Primary Nurse. bp 07:56 Assist provider with eye exam of both eyes. using fluorescein stain, Performed by Moy Campos MD Patient tolerated well. 07:59 Papa Rajput MD is Referral Physician. kdr 08:07 Patient did not have IV access during this emergency room visit. bp Administered Medications: No medications were administered Outcome: 08:00 Discharge ordered by . kdr 08:07 Discharged to home ambulatory. bp 08:07 Condition: stable 08:07 Discharge instructions given to patient, Instructed on discharge instructions, follow up and referral plans. Demonstrated understanding of instructions, follow-up care. 08:08 Patient left the ED. bp Signatures: Moy Campos MD MD kdr Amita Ambrose RN RN iw Lainey Ford 5 Melchor Barragan RN RN Whitney Shelby ag5 Corrections: (The following items were deleted from the chart) 08: 07:45 Pain: Complains of pain in right eye bp bp 08: 07:45 EENT: Reports pain in right eye bp bp
== END 2020-06-05 08:08 | disposition home or self-care (01) ==
LOC: ER 07:30
DX: T15.02XA Foreign body in cornea, left eye, initial encounter (principal); E78.5 Hyperlipidemia, unspecified; I10 Essential (primary) hypertension
CPT/HCPCS: 99283

== ENCOUNTER 2023-04-05 10:50 | Emergency (ER) | payer SELFPAY ==
--- NOTE | 2023-04-05 12:09 | RAD REPORT ---
EXAM DESCRIPTION: RAD - Hand Right 3 View - 04/05/2023 11:37 am CLINICAL HISTORY: Pain;Swelling COMPARISON: No comparisons TECHNIQUE: Right hand, 3 views. FINDINGS: Mildly displaced oblique distal shaft fifth metacarpal fracture. There is involvement of t he medial posterior articular surface of the fifth metacarpal head. Overlying soft tissue swelling. J oint alignment is maintained. There is no dislocation or periosteal reaction noted. No foreign body or other soft tissue abnormalit y. IMPRESSION: Mildly displaced oblique distal shaft fifth metacarpal fracture with likely intra-articu lar extension.
--- NOTE | 2023-04-05 12:10 | RAD REPORT ---
EXAM DESCRIPTION: RAD - Wrist Right 3 View - 04/05/2023 11:37 am CLINICAL HISTORY: Pain;Swelling COMPARISON: No comparisons TECHNIQUE: Right wrist, 3 views. FINDINGS: Distal shaft fifth metacarpal fracture with overlying soft tissue swelling. No other acute findings of the wrist. There is no dislocation or periosteal reaction noted. No foreign body or other soft tissue abnormalit y. IMPRESSION: Distal shaft fifth metacarpal fracture with overlying soft tissue swelling.
--- NOTE | 2023-04-05 12:17 | EDPHYS ---
Physician Documentation [facility] Name: Issa Harden Age: 63 yrs Sex: Male : 1960 Arrival Date: 04/05/2023 Time: 10:50 Bed 12 Private MD: ED Physician Johann Salgado HPI: 04/05 11:16 This 63 yrs old Male presents to ER via Ambulatory with complaints of Fall sb4 Injury, Hand Injury. 11:16 The patient or guardian reports injury, pain, swelling, tenderness. The complaints sb4 affect the right hand diffusely. Context: The problem was sustained outdoors, resulted from fell while skiing, holding ski pole. 11:17 Onset: The symptoms/episode began/occurred 2 day(s) ago. Modifying factors: The sb4 symptoms are alleviated by ice/coldpack to affected area, the symptoms are aggravated by movement. Associated signs and symptoms: Pertinent negatives: cyanosis distally, decreased sensation distally, numbness distally, tingling distally. The patient has not experienced similar symptoms in the past. The patient has not recently seen a physician. Historical: - Allergies: 11: Bees; cm10 - PMHx: 11:01 Hyperlipidemia; Hypertension; Pancreatitis; cm10 - Immunization history:: Adult Immunizations unknown. - Social history:: Smoking status: Patient reports the use of cigarette tobacco products, smokes one-half pack cigarettes per day. ROS: 11:17 Constitutional: Negative for fever, chills, and weight loss, sb4 11:17 MS/extremity: Positive for injury or acute deformity, pain, swelling, tenderness, of the right hand, Exam: 11:17 Constitutional: This is a well developed, well nourished patient who is awake, alert, sb4 and in no acute distress. Head/Face: Normocephalic, atraumatic. Eyes: Extra-ocular motions intact. Periorbital areas with no swelling, redness, or edema. ENT: Mucous membranes moist. Skin: Warm, dry with normal turgor. Normal color with no rashes, no lesions, and no evidence of cellulitis. Neuro: Awake and alert, GCS 15, oriented to person, place, time, and situation. Motor strength 5/5 in all extremities. Sensory grossly intact. 11:17 Musculoskeletal/extremity: right hand diffusely swollen, dorsal tenderness, pain with finger flexion, sensation and pulses inhtact. Vital Signs: 11:00 BP 170 / 80; Pulse 65; Resp 16; Temp 97.1(IR); Pulse Ox 100% on R/A; Weight 65.77 kg; cm10 Height 5 ft. 10 in. ; Pain 9/10; 12:28 BP 156 / 72; Pulse 68; Resp 15; Pulse Ox 100% on R/A; me1 11:00 Body Mass Index 20.81 (65.77 kg, 177.8 cm) cm10 11:00 Pain Scale: Adult cm10 MDM: 11:05 Patient medically screened. sb4 11:17 Differential diagnosis: dislocation, closed fracture, contusion. sb4 11:34 Independent interpretation of the following test(s) in the Emergency Department X-Ray: sb4 My interpretation is My interpretation of the hand x-ray images are acute oblique fracture of fifth metacarpal. 12:16 Data reviewed: vital signs, nurses notes, radiologic studies, I have discussed the sb4 patient's presentation/case with the attending Emergency Department Physician; and as a result, I will discharge patient. Counseling: I had a detailed discussion with the patient and/or guardian regarding the historical points, exam findings, and any diagnostic results supporting the discharge/admit diagnosis, radiology results, the need for outpatient follow up, a hand specialist, to return to the emergency department if symptoms worsen or persist or if there are any questions or concerns that arise at home. 04/05 11:05 Order name: Hand Right 3 View XRAY; Complete Time: 12:10 sb4 04/05 11:05 Order name: Wrist Right 3 View XRAY; Complete Time: 12:10 sb4 12 12:04 Order name: Ulnar Gutter splint; Complete Time: 12:17 sb4 Administered Medications: 12:16 Drug: HYDROcodone-acetaminophen PO 5 mg-325 mg 2 tabs PO once Route: PO; me1 12:27 Follow up: Response: No adverse reaction; Pain is decreased me1 12:16 Drug: Ondansetron Oral Disintegrating Tablet Oral Disintegrating Tablet 4 mg PO once me1 Route: PO; 12:28 Follow up: Response: No adverse reaction me1 Disposition: 14:04 I was immediately available on-site in the Emergency Department for consultation in the ms3 care of the patient. Disposition Summary: 04/05/23 12:17 Discharge Ordered Notes: Location: Home sb4 Problem: new sb4 Symptoms: have improved sb4 Condition: Stable sb4 Diagnosis - Nondisplaced fracture of shaft of fifth metacarpal bone, right hand sb4 Followup: sb4 - With: Private Physician - When: 1 week - Reason: Recheck today's complaints, Re-evaluation by your physician Discharge Instructions: - Discharge Summary Sheet sb4 - Boxer's Fracture sb4 - Metacarpal Fracture, Empf-ha-Asze sb4 Forms: - Medication Reconciliation Form sb4 - Thank You Letter sb4 - Antibiotic Education sb4 - Prescription Opioid Use sb4 - Patient Portal Instructions sb4 - Leadership Thank You Letter sb4 Signatures: Dispatcher [employer] EDMS Johann Salgado DO DO ms3 Sharla Mejias, PAAnmolC PACheryl sb4 Magda Ford RN RN cm10 Fanny Dillon RN RN me1 Corrections: (The following items were deleted from the chart) 11:35 11:34 Independent interpretation of the following test(s) in the Emergency Department sb4 X-Ray: My interpretation is My interpretation of the hand x-ray images are acute oblique fracture of fifth metatarsal. sb4
--- NOTE | 2023-04-05 12:17 | ER ---
Nurse's Notes [facility] Name: Issa Harden Age: 63 yrs Sex: Male : 1960 Arrival Date: 04/05/2023 Time: 10:50 Bed 12 Private MD: Diagnosis: Nondisplaced fracture of shaft of fifth metacarpal bone, right hand Presentation: 04/05 11:00 Chief complaint: Patient states: Pain to right hand. Pt states that he fell skiing on cm10 Wednesday. Pt states that he has the most pain to the 3rd, 4th and 5th digit of right hand. Pt has noted swelling to right hand. Coronavirus screen: Vaccine status: Patient reports being unvaccinated. Client denies travel out of the [place] in the last 14 days. Ebola Screen: Patient denies travel to an Ebola-affected area in the 21 days before illness onset. No symptoms or risks identified at this time. Initial Sepsis Screen: Does the patient meet any 2 criteria? No. Patient's initial sepsis screen is negative. Does the patient have a suspected source of infection? No. Patient's initial sepsis screen is negative. Risk Assessment: Do you want to hurt yourself or someone else? Patient reports no desire to harm self or others. Onset of symptoms was April 05, 2023. 11:00 Method Of Arrival: Ambulatory cm10 11:00 Acuity: LINDA 4 cm10 Triage Assessment: 11:02 General: Appears in no apparent distress. comfortable, Behavior is calm, cooperative. cm10 Pain: Complains of pain in right hand Pain currently is 9 out of 10 on a pain scale. Quality of pain is described as throbbing, Pain began 2-3 days ago. EENT: No deficits noted. No signs and/or symptoms were reported regarding the EENT system. Neuro: No deficits noted. Gonzales Agitation-Sedation Scale (RASS): 0 - Alert and Calm Level of Consciousness is awake, alert, obeys commands, Oriented to person, place, time, situation. Cardiovascular: No deficits noted. Patient's skin is warm and dry. Respiratory: No deficits noted. Airway is patent Respiratory effort is even, unlabored, Respiratory pattern is regular, symmetrical. GI: No deficits noted. No signs and/or symptoms were reported involving the gastrointestinal system. : No deficits noted. No signs and/or symptoms were reported regarding the genitourinary system. Derm: No deficits noted. No signs and/or symptoms reported regarding the dermatologic system. Skin is intact, Skin is pink, warm \T\ dry. Musculoskeletal: No deficits noted. Swelling present in right hand Reports pain in right hand. Historical: - Allergies: 11:01 Bees; cm10 - PMHx: 11:01 Hyperlipidemia; Hypertension; Pancreatitis; cm10 - Immunization history:: Adult Immunizations unknown. - Social history:: Smoking status: Patient reports the use of cigarette tobacco products, smokes one-half pack cigarettes per day. Screenin:03 [facility] ED Fall Risk Assessment (Adult) History of falling in the last 3 months, cm10 including since admission Yes- single mechanical fall (1 pt) Confusion or Disorientation No (0 pts) Intoxicated or Sedated No (0 pts) Impaired Gait No (0 pts) Mobility Assist Device Used No (0 pt) Altered Elimination No (0 pt) Score/Fall Risk Level 0 - 2 = Low Risk Oriented to surroundings, Maintained a safe environment, Hourly rounding (assess needs \T\ fall precautionary measures) done. Abuse screen: Denies threats or abuse. Denies injuries from another. Nutritional screening: No deficits noted. Tuberculosis screening: No symptoms or risk factors identified. Assessment: 12:16 General: Appears uncomfortable, well groomed, well developed, well nourished, Behavior me1 is calm, cooperative, appropriate for age, Reports Pain to right hand. Pt states that he fell skiing on Wednesday. Pt states that he has the most pain to the 3rd, 4th and 5th digit of right hand. Pt has noted swelling to right hand. Pain: Complains of pain in right hand Pain does not radiate. Pain currently is 8 out of 10 on a pain scale. Quality of pain is described as sharp, Pain began suddenly, Is continuous. Neuro: Level of Consciousness is awake, alert, obeys commands, Oriented to person, place, time, situation, Appropriate for age. Cardiovascular: Capillary refill < 3 seconds Patient's skin is warm and dry. Respiratory: Airway is patent Respiratory effort is even, unlabored, Respiratory pattern is regular, symmetrical. Musculoskeletal: Reports pain in right hand. Vital Signs: 11:00 BP 170 / 80; Pulse 65; Resp 16; Temp 97.1(IR); Pulse Ox 100% on R/A; Weight 65.77 kg; cm10 Height 5 ft. 10 in. ; Pain 9/10; 12:28 BP 156 / 72; Pulse 68; Resp 15; Pulse Ox 100% on R/A; me1 11:00 Body Mass Index 20.81 (65.77 kg, 177.8 cm) cm10 11:00 Pain Scale: Adult cm10 ED Course: 10:52 Patient arrived in ED. mr 10:53 Sharla Mejias PA-C is PHCP. sb4 10:53 Johann Salgado DO is Attending Physician. sb4 11:01 Triage completed. cm10 11:02 Arm band placed on Patient placed in an exam room, on a stretcher. cm10 11:03 Patient has correct armband on for positive identification. Bed in low position. Call cm10 light in reach. Provided Education on: ER process and procedures.. Cardiac monitoring not applicable on this patient. 11:39 Hand Right 3 View XRAY In Process Unspecified. EDMS 11:39 Wrist Right 3 View XRAY In Process Unspecified. EDMS 12:02 Fanny Dillon, RN is Primary Nurse. me1 12:16 No provider procedures requiring assistance completed. Patient did not have IV access me1 during this emergency room visit. 12:17 Orthoglass splint: Ulnar gutter/Boxer splint applied on right forearm. em1 Administered Medications: 12:16 Drug: HYDROcodone-acetaminophen PO 5 mg-325 mg 2 tabs PO once Route: PO; me1 12:27 Follow up: Response: No adverse reaction; Pain is decreased me1 12:16 Drug: Ondansetron Oral Disintegrating Tablet Oral Disintegrating Tablet 4 mg PO once me1 Route: PO; 12:28 Follow up: Response: No adverse reaction me1 Medication: 11:03 VIS not applicable for this client. cm10 Outcome: 12:17 Discharge ordered by . sb4 12:32 Discharged to home ambulatory, me1 12:32 Condition: stable 12:32 Discharge instructions given to patient, Instructed on discharge instructions, follow up and referral plans. Demonstrated understanding of instructions, follow-up care, 12:32 Patient left the ED. me1 Signatures: Dispatcher [employer] EDMS Rita Kramer, Ad Duong Amado Ford em1 Sharla Mejias PA-C PA-C sb4 Magda Ford RN RN cm10 Fanny Dillon RN RN me1 Corrections: (The following items were deleted from the chart) 12:13 11:00 Chief complaint: Patient states: Pain to right hand. Pt states that he fell me1 skiing on Wednesday. Pt states that he has the most pain to the 3rd, 4th and 5th digit of right hand. Pt has noted swelling to right hand. cm10
[2023-04-05] MEDS ORDERED: HYDROCODONE/APAP 5/325 MG TAB ONE (12:27)
[2023-04-05] MEDS ORDERED: ONDANSETRON 4 MG (ODT) TAB ONE (12:27)
[2023-04-05 12:39] VITALS: TEMP 97.1; O2SAT 100
[2023-04-05 12:41] VITALS: BP 156/72
== END 2023-04-05 12:32 | disposition home or self-care (01) ==
LOC: ER 10:50
DX: S62.356A Nondisplaced fracture of shaft of fifth metacarpal bone, right hand, initial encounter for closed fracture (principal)
CPT/HCPCS: 99283; Q0162